=== PATIENT | male | born 1990 | race Caucasian/White ===

== ENCOUNTER 2017-08-22 14:55 | Emergency (ER) | payer SELFPAY ==
[~2017-08-22] VITALS: Ht 188 cm; Wt 77.1 kg
[2017-08-22 15:35] VITALS: BP 126/63
--- NOTE | 2017-08-23 01:14 | PHYS DOC ---
Past Medical History Past Medical History: No Pertinent History Past Surgical History: No Surgical History Additional Information: PPD Alcohol Use: Rarely Drug Use: None Adult General Chief Complaint Chief Complaint: EARACHE/EAR PAIN HPI HPI Patient is a 27 year old male who presents with ringing in right ear and decreased hearing for 1 week. The patient states he had cold symptoms which progressed to the ringing. He then got an ear cleaning kit thinking maybe his ears were plugged. He use the [id number] kit with no success or improvement in his symptoms. He also stated that he took Sudafed but stopped approximately 3 days ago when it did not resolve his symptoms. He denies ear pain, headache, vision changes or fever. Review of Systems Review of Systems Constitutional: Denies fever or chills [] Eyes: Denies change in visual acuity, redness, or eye pain [] HENT: See history of present illness Integument: Denies rash or skin lesions [] Neurologic: Denies headache, focal weakness or sensory changes [] Endocrine: Denies polyuria or polydipsia [] All other systems were reviewed and found to be within normal limits, except as documented in this note. Allergies Allergies Allergies Coded Allergies Type Severity Reaction Last Updated Verified No Known Drug Allergies 08/22/17 No Physical Exam Physical Exam Constitutional: Well developed, well nourished, no acute distress, non-toxic appearance. [] HENT: Normocephalic, atraumatic, bilateral external ears normal, tympanic membrane is normal on the left, there is a tiny abrasion around 11:00 on the right TM that almost appears abraded, the right TM is clear with fluid evidenced behind, oropharynx moist, no oral exudates, nose normal. With his eyes closed the patient is able to hear the rustling of my fingers rubbing although he states that it is louder in the left ear than the right[] Eyes: PERRLA, EOMI, conjunctiva normal, no discharge. [] Neck: Normal range of motion, no tenderness, supple, no stridor. [] Cardiovascular:Heart rate regular rhythm, no murmur [] Lungs & Thorax: Bilateral breath sounds clear to auscultation [] Neurologic: Alert and oriented X 3, normal motor function, normal sensory function, no focal deficits noted. [] Psychologic: Affect normal, judgement normal, mood normal. [] Current Patient Data Vital Signs Vital Signs Date Time Temp Pulse Resp B/P (MAP) Pulse Ox O2 Delivery O2 Flow Rate FiO2 08/22/17 15:35 98.5 78 16 126/63 (84) 100 Room Air 98.5 EKG EKG [] Radiology/Procedures Radiology/Procedures [] Course & Med Decision Making Course & Med Decision Making Pertinent Labs and Imaging studies reviewed. (See chart for details) []1. Tinnitus 2. Decreased hearing The patient was encouraged to continue taking the Sudafed. He is to follow-up at [facility] or [facility] for further evaluation of his symptoms. He is to return to the ED for worsening symptoms. Dragon Disclaimer Dragon Disclaimer This electronic medical record was generated, in whole or in part, using a voice recognition dictation system. Departure Departure Impression: Primary Impression: Tinnitus Disposition: 01 HOME, SELF-CARE Condition: STABLE Patient Instructions: Tinnitus Additional Instructions: Please follow up with [facility] or [facility] for further relation and treatment. Please return to the emergency department if worsening immediately. ANDREA HERNÁNDEZ [employer] Aug 23, 2017 01:14
== END 2017-08-22 16:21 | disposition home or self-care (01) ==
LOC: ER 14:55
DX: H93.11 Tinnitus, right ear (principal); F17.200 Nicotine dependence, unspecified, uncomplicated
CPT/HCPCS: 99281